=== PATIENT | male | born 1990 | race Caucasian/White ===

== ENCOUNTER 2019-07-06 12:59 | Day surgery (SDC) | payer OTHER ==
[~2019-07-06 12:59] MED LIST: CLON1 PO; CRUTCH3 XX; CYCL10 PO; MELATONIN5 MG/15 ML PO; NAPR550 PO; OMEPRAZOLE20 MG PO; TRAZ50 PO; ZYRTEC10 M1 PO
== END 2019-07-06 13:20 | disposition home or self-care (01) ==
LOC: ORSCSDS 12:59
DX: R19.4 Change in bowel habit (principal); Z53.9 Procedure and treatment not carried out, unspecified reason; R63.4 Abnormal weight loss; K21.9 Gastro-esophageal reflux disease without esophagitis; R11.0 Nausea
CPT/HCPCS: J2704; J7120

== ENCOUNTER 2021-04-13 16:01 | Emergency (ER) | payer OTHER ==
[~2021-04-13] VITALS: Ht 193 cm; Wt 104.3 kg
== END 2021-04-13 21:46 | disposition home or self-care (01) ==
LOC: ER 16:01
DX: S62.201A Unspecified fracture of first metacarpal bone, right hand, initial encounter for closed fracture (principal); F17.200 Nicotine dependence, unspecified, uncomplicated; V29.9XXA Motorcycle rider (driver) (passenger) injured in unspecified traffic accident, initial encounter; Y92.410 Unspecified street and highway as the place of occurrence of the external cause
CPT/HCPCS: 73080; 73502; 73562-RT; 73610; 73630; 99284-25; A9270